=== PATIENT | male | born 1950 | race Caucasian/White ===

== ENCOUNTER 2016-08-30 06:21 | Day surgery (SDC) | payer BC ==
[~2016-08-30] VITALS: Ht 188 cm; Wt 86.1 kg
[2016-08-30] MEDS ORDERED: ULTRAM 50MG TAB50 MG PO (06:43)
[2016-08-30] MEDS ORDERED: PERCOCET 325 MG1 TA3 PO (06:44)
[2016-08-30] MEDS ORDERED: REVATIO20 MG PO (06:44)
[2016-08-30] MEDS ORDERED: FLONASE NASAL S16 GM NS (06:45)
[2016-08-30 07:12] VITALS: BP 125/78; PULSE 65; TEMP 97.8
[2016-08-30 10:15] VITALS: BP 117/68; PULSE 73; TEMP 97.6
[2016-08-30 10:30] VITALS: BP 131/70; PULSE 68
[2016-08-30 10:45] VITALS: BP 125/74; PULSE 69
[2016-08-30] MEDS ORDERED: NORCO 325 MG-7.1 TAB PO (10:46)
== END 2016-08-30 11:20 | disposition home or self-care (01) ==
LOC: SDCO 06:21
DX: S83.232A Complex tear of medial meniscus, current injury, left knee, initial encounter (principal); M23.222 Derangement of posterior horn of medial meniscus due to old tear or injury, left knee; M94.262 Chondromalacia, left knee; Z87.891 Personal history of nicotine dependence; V88.8XXA Person injured in other specified noncollision transport accidents involving motor vehicle, nontraffic, initial encounter
CPT/HCPCS: J0690; J1100; J1170; J1885; J2270; J2405; J2704; J3010; J7120

== ENCOUNTER → 2019-02-22 | Outpatient (CLI) | payer MEDICARE, BC ==
[~2019-02-22] MED LIST: FLONASE NASAL S16 GM NS; NORCO 325 MG-7.1 TAB PO; PERCOCET 325 MG1 TA3 PO; REVATIO20 MG PO; ULTRAM 50MG TAB50 MG PO
== END ==
LOC: COL.RAD 08:59
DX: Z13.6 Encounter for screening for cardiovascular disorders (principal); Z87.891 Personal history of nicotine dependence